=== PATIENT | male | born 1980 | race African-American/Black ===

== ENCOUNTER 2021-11-08 11:15 | Emergency (ER) | payer OTHER ==
[~2021-11-08] VITALS: Ht 170.2 cm; Wt 132.0 kg
[2021-11-08 11:48] VITALS: BP 135/83
[2021-11-08] MEDS ORDERED: ONDA4TAB5 MT (11:59)
== END 2021-11-08 12:19 | disposition home or self-care (01) ==
LOC: ER 11:15
DX: R11.2 Nausea with vomiting, unspecified (principal); Z20.822 Contact with and (suspected) exposure to COVID-19
CPT/HCPCS: 99283; C9803; U0003; U0005